=== PATIENT | male | born 1975 | race African-American/Black ===

== ENCOUNTER 2021-06-27 18:57 | Emergency (ER) | payer OTHER ==
[~2021-06-27] VITALS: Ht 175.3 cm; Wt 84.8 kg
[2021-06-27 20:03] LABS: URINE BLOOD NEGATIVE (Negative); URINE CLARITY CLEAR; URINE COLOR DARK YELLOW; URINE GLUCOSE-RANDOM NEGATIVE (Negative); URINE KETONES 2+ (Negative); URINE LEUKOCYTES-REFLEX NEGATIVE (Negative); URINE NITRITE-REFLEX NEGATIVE (Negative); URINE PROTEIN 1+ (Negative); URINE SPECIFIC GRAVITY 1.025 (1.005-1.030); URINE UROBILINOGEN 0.2 E.U./dl (0.2-1.0)
[2021-06-27 20:06] LABS: ABSOLUTE LYMPHOCYTES 2.8 thou/uL (0.8-5.3); ABSOLUTE MONOCYTES 1.1 thou/uL (0.0-1.2); ABSOLUTE NEUTROPHILS 5.4 thou/uL (1.6-8.1); BASOPHILS 0.4 %; EOSINOPHILS 0.4 %; HEMATOCRIT 46.3 % (42.0-52.0); HEMOGLOBIN 15.6 gm/dL (14.0-18.0); LYMPHOCYTES 30.1 %; MCH 32.9 pg (26.0-34.0); MCHC 33.6 g/dL (28.0-37.0); MPV 9.6 fl. (7.2-11.1); NUCLEATED RBCS 0 /100WBC; PLATELET COUNT* 208 thou/uL (150-400); POLYS 57.1 %; RBC 4.72 mil/uL (4.50-6.00); WBC 9.5 thou/uL (4.0-11.0)
[2021-06-27 20:10] LABS: ICTOTEST (BILI CONFIRMATORY) Negative (Negative); URINE BILIRUBIN 1+ (Negative)
[2021-06-27 20:10] LABS: CALCIUM 8.7 mg/dL (8.5-10.1); CREATININE 1.1 mg/dL (0.6-1.3); POTASSIUM 3.2 mmol/L (3.5-5.1)
[2021-06-27 20:15] LABS: ALBUMIN 3.4 g/dL (3.4-5.0); TOTAL BILIRUBIN 1.5 mg/dL (<0.1-1.0); TOTAL PROTEIN 7.6 g/dL (6.4-8.2)
[2021-06-27] MEDS ORDERED: KLOR-CON 1010 MEQ PO (20:36)
[2021-06-27] MEDS ORDERED: ZOFRAN ODT4 MG PO (20:36)
[2021-06-27] MEDS ORDERED: OMEPRAZOLE 20 M20 M1 PO (20:36)
[2021-06-27 20:55] VITALS: BP 139/59
--- NOTE | 2021-06-28 08:53 | EKG ---
[place] [address] ELECTROCARDIOGRAM REPORT Name: SHAUN CASILLAS Room: [facility]#: [id number] Admission: 06/27/21 Attend Phys: Discharge: 06/27/21 Date of : 73 Date of Service: 06/27/211930 Report #: [id number] THIS REPORT FOR: //name// [facility] ED Test Date: 2021-06-27 Test Time: 19:31:50 Pat Name: SHAUN CASILLAS Department: Room: Gender: Runner Man: : 1975 Requested By: Marita Reid Order Number: [id number] MD: Mike Lal Measurements Intervals [place] Rate: 58 P: 34 AR: 140 QRS: 40 QRSD: 80 T: 14 QT: 399 QTc: 392 Interpretive Statements Sinus rhythm Borderline T wave abnormalities No previous ECG available for comparison Electronically Signed On 06-28-2021 8:53:31 FIELD SUPPORT SPECIALIST by Mike Lal [email or web address] <ELECTRONICALLY SIGNED> By: Mike Lal MD, [facility] 06/28/21 0853 30 30 Mike Lal MD, FACC /EPI
== END 2021-06-27 20:57 | disposition home or self-care (01) ==
LOC: M.ERS 18:57
PROVIDERS: Nurse Practitioner Family
DX: E87.6 Hypokalemia (principal); R11.2 Nausea with vomiting, unspecified; F10.20 Alcohol dependence, uncomplicated; Y90.9 Presence of alcohol in blood, level not specified

== ENCOUNTER 2021-07-16 10:45 | Emergency (ER) | payer OTHER ==
[~2021-07-16] VITALS: Ht 175.3 cm; Wt 86.2 kg
[~2021-07-16 10:45] MED LIST: KLOR-CON 1010 MEQ PO; OMEPRAZOLE 20 M20 M1 PO; ZOFRAN ODT4 MG PO
[2021-07-16 11:19] LABS: URINE BILIRUBIN NEGATIVE (Negative); URINE BLOOD NEGATIVE (Negative); URINE CLARITY CLEAR; URINE COLOR YELLOW; URINE GLUCOSE-RANDOM NEGATIVE (Negative); URINE KETONES NEGATIVE (Negative); URINE LEUKOCYTES-REFLEX 1+ (Negative); URINE NITRITE-REFLEX NEGATIVE (Negative); URINE PROTEIN NEGATIVE (Negative); URINE SPECIFIC GRAVITY <= 1.005 (1.005-1.030); URINE UROBILINOGEN 0.2 E.U./dl (0.2-1.0)
[2021-07-16] MEDS ORDERED: DOXYCYCLINE 10100 MG PO (11:19)
[2021-07-16] MEDS ORDERED: SUPRAX400 M1 PO (11:19)
[2021-07-16 11:27] LABS: CASTS None Seen /LPF (None Seen); SQUAMOUS 0-3 Few /LPF (0-3)
[2021-07-16 11:28] LABS: BACTERIA-REFLEX None Seen /HPF (None Seen); CRYSTALS None Seen /LPF (None Seen); URINE RBC None Seen /HPF (0-2); URINE WBC-REFLEX 0-5 Rare /HPF (0-5)
[2021-07-16 11:49] VITALS: BP 138/99
== END 2021-07-16 11:50 | disposition home or self-care (01) ==
LOC: M.ERS 10:45
PROVIDERS: Nurse Practitioner Family
DX: A64 Unspecified sexually transmitted disease (principal); R36.9 Urethral discharge, unspecified